=== PATIENT | male | born 1945 | race Caucasian/White ===

== ENCOUNTER → 2020-10-05 | Outpatient (CLI) | payer MEDICARE, BC ==
[~2020-10-05] MED LIST: AMLO-211 PO; ASPI81TA45 PO; MULT-658 PO
[2020-10-05 12:31] LABS: BASOPHILS % (AUTO) 1 % (0-1); EOSINOPHILS % (AUTO) 2 % (1-7); LYMPHOCYTES % (AUTO) 26 % (22-44); MEAN CORPUSCULAR HEMOGLOBIN 36.3 pg (27.5-34.5); MEAN CORPUSCULAR HGB CONC 35.6 g/dL (33.2-36.2); MEAN PLATELET VOLUME 9.9 fL (7.4-10.4); MONOCYTES % (AUTO) 11 % (2-9); NEUTROPHILS % (AUTO) 60 % (42-75); PLATELET COUNT 127 x10^3/uL (130-400); RED BLOOD COUNT 5.13 x10^6/uL (4.38-5.82); RED CELL DISTRIBUTION WIDTH 13.2 % (9.4-14.8)
[2020-10-05 12:34] LABS: INTERNATIONAL NORMALIZED RATIO 1.05 (0.93-1.1); PROTHROMBIN TIME 11.1 Seconds (9.6-11.5)
[2020-10-05 12:38] LABS: CHLORIDE 107 mmol/L (98-107)
[2020-10-05 12:46] LABS: ALANINE AMINOTRANSFERASE 28 U/L (12-78); ALBUMIN 4.4 g/dL (3.4-5.0); ALKALINE PHOSPHATASE 95 U/L (45-117); ANION GAP 5 mmol/L (5-15); BILIRUBIN,TOTAL 0.8 mg/dL (0.2-1.0); CALCIUM 9.2 mg/dL (8.5-10.1); CREATININE 1.21 mg/dL (0.7-1.3); TOTAL PROTEIN 7.8 g/dL (6.4-8.2)
[2020-10-05 13:26] LABS: MD SCAN
== END | disposition home or self-care (01) ==
LOC: STAR 08:00
PROVIDERS: ATTEND Orthopaedic Surgery
DX: Z01.810 Encounter for preprocedural cardiovascular examination (principal); Z01.818 Encounter for other preprocedural examination; M16.11 Unilateral primary osteoarthritis, right hip; M25.551 Pain in right hip; I44.7 Left bundle-branch block, unspecified; Z20.828 Contact with and (suspected) exposure to other viral communicable diseases; Z79.01 Long term (current) use of anticoagulants
CPT/HCPCS: 80053; 83036; 85025; 85610; 85730; 87081; 87635; 93005

== ENCOUNTER 2020-10-10 10:18 | Day surgery (SDC) | payer MEDICARE, BC ==
[~2020-10-10] VITALS: Ht 175.3 cm; Wt 84.5 kg
[~2020-10-10 10:18] MED LIST changes: +ACETAMINOPHEN 650 MG/20.3 ML UDC PO PRN; +AMLODIPINE 10 MG TAB PO SCH; +BISACODYL 10 MG SUPP PR PRN; +DIPHENHYDRAMINE 50 MG CAPSULE PO PRN; +DOCUSATE 100 MG CAPSULE PO SCH; +HYDROcodone/APAP 5/325 TABLET PO PRN; +MAGNESIUM HYDROXIDE 8%, 30ML UDC PO PRN; +ONDANSETRON 2MG/ML, 2ML IV PRN; +ONDANSETRON 4 MG TABLET PO PRN; +OXYcodone IR 5MG TABLET PO PRN; +SENNA/DOCUSATE TABLET PO PRN; +ZOLPIDEM 5MG TABLET PO PRN
[2020-10-10] MEDS ORDERED: KETOROLAC 60 MG/2 ML ONE (10:32)
[2020-10-10] MEDS ORDERED: ROPIvacaine/PF 0.5%, 20 ML ONE (10:32)
[2020-10-10] MEDS ORDERED: TRANEXAMIC ACID 100 MG/ML, 10ML ONE ×2 (10:32)
[2020-10-10] MEDS ORDERED: EPINEPHRINE 1 MG/ML, 1ML ONE (10:33)
[2020-10-10] MEDS ORDERED: ROPIvacaine/PF 0.5%, 30 ML ONE (10:33)
[2020-10-10] MEDS ORDERED: SODIUM CHLORIDE 0.9% 50 ML ONE (10:33)
[2020-10-10] MEDS ORDERED: VANCOMYCIN 1,000 MG ONE (10:33)
[2020-10-10] MEDS ORDERED: FENTANYL PF 250 MCG/5ML ONE (10:47)
[2020-10-10] MEDS ORDERED: ACETAMINOPHEN 500 MG TABLET ONE ×2 (10:56)
[2020-10-10] MEDS ORDERED: GABAPENTIN 300 MG CAPSULE ONE (10:56)
[2020-10-10] MEDS ORDERED: CHLORHEXIDINE 15 ML UDC MM ONE ×2 (11:00→11:30)
[2020-10-10] MEDS ORDERED: ACETAMINOPHEN 500 MG TABLET PO ONE (11:00)
[2020-10-10] MEDS ORDERED: LACTATED RINGERS 1,000 ML IV SCH ×2 (11:00→11:30)
[2020-10-10] MEDS ORDERED: GABAPENTIN 300 MG CAPSULE PO ONE (11:00)
[2020-10-10] MEDS ORDERED: PHENYLEPHRINE 10 MG/ML ONE (11:52)
[2020-10-10] MEDS ORDERED: DEXAMETHASONE 4 MG/ML, 1ML ONE (11:52)
[2020-10-10] MEDS ORDERED: GLYCOPYRROLATE 0.2MG/1ML, 5ML ONE (12:24)
[2020-10-10] MEDS ORDERED: ONDANSETRON 2MG/ML, 2ML ONE (12:24)
[2020-10-10] MEDS ORDERED: ROCURONIUM 10MG/ML,5ML ONE (12:24)
[2020-10-10] MEDS ORDERED: CEFAZOLIN 1,000 MG ONE (12:24)
[2020-10-10] MEDS ORDERED: NEOSTIGMINE 1 MG/ML, 10ML ONE (12:24)
[2020-10-10] MEDS ORDERED: PROPOFOL 10 MG/ML, 20ML ONE (12:24)
[2020-10-10] MEDS ORDERED: ALBUTEROL SULFATE 2.5 MG/3 ML NPPB PRN (12:30)
[2020-10-10] MEDS ORDERED: OXYcodone 5 MG/5 ML ORAL.SOL UDC PO PRN (12:30)
[2020-10-10] MEDS ORDERED: HYDROmorphone 1 MG/ML, 1ML INJ IVPush PRN (12:30)
[2020-10-10] MEDS ORDERED: ACETAMINOPHEN 325 MG TABLET PO PRN (12:30)
[2020-10-10] MEDS ORDERED: FENTANYL PF 100 MCG/2ML IV PRN (12:30)
[2020-10-10] MEDS ORDERED: MEPERIDINE/PF 25MG/0.5ML IVPush PRN (12:30)
[2020-10-10] MEDS ORDERED: PROMETHAZINE 25 MG/ML, 1ML IVPush PRN (12:30)
[2020-10-10] MEDS ORDERED: LABETALOL 5MG/ML, 20ML IV PRN (12:30)
[2020-10-10] MEDS ORDERED: NS + 20MEQ KCL 1,000 ML IV SCH (16:43)
[2020-10-10] MEDS ORDERED: ASPIRIN 81 MG TABLET EC PO SCH (18:00)
[2020-10-10] MEDS ORDERED: CEFAZOLIN PMX 2GM/50ML 50 ML IVPB SCH (20:00)
[2020-10-11] MEDS ORDERED: DEXAMETHASONE 4 MG/ML, 1ML IVPush SCH (06:00)
== END 2020-10-10 15:00 | disposition home or self-care (01) ==
LOC: OUT 10:18
PROVIDERS: ATTEND Orthopaedic Surgery
DX: M16.0 Bilateral primary osteoarthritis of hip (principal); M25.751 Osteophyte, right hip; I10 Essential (primary) hypertension; Z79.1 Long term (current) use of non-steroidal anti-inflammatories (NSAID); Z79.899 Other long term (current) drug therapy; Z87.891 Personal history of nicotine dependence
CPT/HCPCS: 27130; 72170; 73501; 97161; 97165; C1713; C1776; J0171; J0690; J1100; J1885; J2370; J2405; J2704; J2710; J2795; J3010; J3370; J7120; 76000

== ENCOUNTER 2020-12-27 12:24 | Outpatient (CLI) | payer MEDICARE, OTHER ==
[~2020-12-27 12:24] MED LIST changes: -ACETAMINOPHEN 650 MG/20.3 ML UDC PO PRN; -AMLODIPINE 10 MG TAB PO SCH; -BISACODYL 10 MG SUPP PR PRN; -DIPHENHYDRAMINE 50 MG CAPSULE PO PRN; -DOCUSATE 100 MG CAPSULE PO SCH; -HYDROcodone/APAP 5/325 TABLET PO PRN; -MAGNESIUM HYDROXIDE 8%, 30ML UDC PO PRN; -ONDANSETRON 2MG/ML, 2ML IV PRN; -ONDANSETRON 4 MG TABLET PO PRN; -OXYcodone IR 5MG TABLET PO PRN; -SENNA/DOCUSATE TABLET PO PRN; -ZOLPIDEM 5MG TABLET PO PRN
[2020-12-27] MEDS ORDERED: ASPI81TA45 PO (12:47)
[2020-12-27 13:21] LABS: BASOPHILS % (AUTO) 1 % (0-1); EOSINOPHILS % (AUTO) 2 % (1-7); LYMPHOCYTES % (AUTO) 20 % (22-44); MEAN CORPUSCULAR HEMOGLOBIN 35.1 pg (27.5-34.5); MEAN CORPUSCULAR HGB CONC 34.2 g/dL (33.2-36.2); MEAN PLATELET VOLUME 9.5 fL (7.4-10.4); MONOCYTES % (AUTO) 12 % (2-9); NEUTROPHILS % (AUTO) 66 % (42-75); PLATELET COUNT 156 x10^3/uL (130-400); RED BLOOD COUNT 4.98 x10^6/uL (4.38-5.82); RED CELL DISTRIBUTION WIDTH 14.6 % (9.4-14.8)
[2020-12-27 13:26] LABS: MD NO
[2020-12-27 13:34] LABS: INTERNATIONAL NORMALIZED RATIO 1.07 (0.93-1.1); PROTHROMBIN TIME 11.4 Seconds (9.6-11.5)
[2020-12-27 13:35] LABS: ANION GAP 6 mmol/L (5-15); CALCIUM 9.2 mg/dL (8.5-10.1); CHLORIDE 108 mmol/L (98-107)
[2020-12-27 13:38] LABS: ALANINE AMINOTRANSFERASE 20 U/L (12-78); ALKALINE PHOSPHATASE 100 U/L (45-117); BILIRUBIN,TOTAL 0.6 mg/dL (0.2-1.0); TOTAL PROTEIN 7.3 g/dL (6.4-8.2)
== END 2020-12-27 23:59 | disposition home or self-care (01) ==
LOC: STAR 12:24
PROVIDERS: ATTEND Orthopaedic Surgery
DX: Z01.818 Encounter for other preprocedural examination (principal); M16.12 Unilateral primary osteoarthritis, left hip; I44.7 Left bundle-branch block, unspecified
CPT/HCPCS: 36415; 80053; 83036; 85025; 85610; 85730; 87081; 93005

== ENCOUNTER 2021-01-03 11:00 | Outpatient (CLI) | payer MEDICARE, OTHER | END 2021-01-03 23:59 | disposition home or self-care (01) | LOC: STAR 11:00 | PROVIDERS: ATTEND Anesthesiology | DX: Z20.822 Contact with and (suspected) exposure to COVID-19 (principal) | CPT/HCPCS: U0003 ==

== ENCOUNTER 2021-01-04 10:03 | Day surgery (SDC) | payer MEDICARE, OTHER ==
[~2021-01-04] VITALS: Ht 175.3 cm; Wt 86.4 kg
[~2021-01-04 10:03] MED LIST changes: +ACETAMINOPHEN 650 MG/20.3 ML UDC PO PRN; +AMLODIPINE 10 MG TAB PO SCH; +BISACODYL 10 MG SUPP PR PRN; +CEFAZOLIN PMX 2GM/50ML 50 ML IVPB SCH; +DIPHENHYDRAMINE 50 MG CAPSULE PO PRN; +DOCUSATE 100 MG CAPSULE PO SCH; +EPHEDRINE 50 MG/ML, 1ML IVPush PRN; +EPINEPHRINE 1 MG/ML, 1ML ONE; +FENTANYL PF 100 MCG/2ML IV PRN; +HYDROcodone/APAP 5/325 TABLET PO PRN; +HYDROmorphone 1 MG/ML, 1ML INJ IVPush PRN; +KETOROLAC 60 MG/2 ML ONE; +LABETALOL 5MG/ML, 20ML IV PRN; +MAGNESIUM HYDROXIDE 8%, 30ML UDC PO PRN; +NS + 20MEQ KCL 1,000 ML IV SCH; +ONDANSETRON 2MG/ML, 2ML IV PRN; +ONDANSETRON 2MG/ML, 2ML IVPush PRN; +ONDANSETRON 4 MG TABLET PO PRN; +OXYcodone 5 MG/5 ML ORAL.SOL UDC PO PRN; +OXYcodone IR 5MG TABLET PO PRN; +PROMETHAZINE 25 MG/ML, 1ML IVPush PRN; +ROPIvacaine/PF 0.5%, 20 ML ONE; +ROPIvacaine/PF 0.5%, 30 ML ONE; +SENNA/DOCUSATE TABLET PO PRN; +SODIUM CHLORIDE 0.9% 50 ML ONE; +TRANEXAMIC ACID 100 MG/ML, 10ML ONE; +VANCOMYCIN 1,000 MG ONE; +ZOLPIDEM 5MG TABLET PO PRN; +hydrALAzine 20 MG/ML, 1ML IV PRN
[2021-01-04] MEDS ORDERED: CHLORHEXIDINE 15 ML UDC PO ONE (11:00)
[2021-01-04] MEDS ORDERED: ACETAMINOPHEN 500 MG TABLET PO ONE (11:00)
[2021-01-04] MEDS ORDERED: GABAPENTIN 300 MG CAPSULE PO ONE (11:00)
[2021-01-04 11:14] VITALS: BP 156/77
[2021-01-04] MEDS ORDERED: FENTANYL PF 250 MCG/5ML ONE (11:16)
[2021-01-04] MEDS ORDERED: LACTATED RINGERS 1,000 ML IV SCH (11:30)
[2021-01-04] MEDS ORDERED: ONDANSETRON 2MG/ML, 2ML ONE (12:51)
[2021-01-04] MEDS ORDERED: SUCCINYLCHOLINE 20 MG/ML, 10ML ONE (12:51)
[2021-01-04] MEDS ORDERED: CEFAZOLIN 1,000 MG ONE (12:51)
[2021-01-04] MEDS ORDERED: PROPOFOL 10 MG/ML, 20ML ONE (12:51)
[2021-01-04] MEDS ORDERED: DEXAMETHASONE 4 MG/ML, 5ML ONE (12:52)
[2021-01-04] MEDS ORDERED: LIDOCAINE-MPF 2% ,5ML ONE (12:52)
[2021-01-04] MEDS ORDERED: SODIUM CHLORIDE 0.9% PF 10ML ONE (12:53)
[2021-01-04] MEDS ORDERED: HYDROmorphone 1 MG/ML, 1ML INJ ONE (13:12)
[2021-01-04] MEDS ORDERED: CEFAZOLIN PMX 2GM/50ML 50 ML IVPB SCH (16:00)
[2021-01-04] MEDS ORDERED: ASPIRIN 81 MG TABLET EC PO SCH (18:00)
[2021-01-05] MEDS ORDERED: DEXAMETHASONE 4 MG/ML, 1ML IVPush SCH (06:00)
== END 2021-01-04 17:00 | disposition home or self-care (01) ==
LOC: OUT 10:03
PROVIDERS: ATTEND Orthopaedic Surgery
DX: M16.12 Unilateral primary osteoarthritis, left hip (principal); M25.752 Osteophyte, left hip; I10 Essential (primary) hypertension; Z79.1 Long term (current) use of non-steroidal anti-inflammatories (NSAID); Z79.82 Long term (current) use of aspirin; Z79.899 Other long term (current) drug therapy; Z87.891 Personal history of nicotine dependence; Z96.641 Presence of right artificial hip joint
CPT/HCPCS: 27130; 72170; 73501; 97161; C1713; C1776; J0171; J0330; J0690; J1100; J1170; J1885; J2405; J2704; J2795; J3010; J3370; 76000